=== PATIENT | male | born 1930 | race Caucasian/White ===

== ENCOUNTER 2017-07-22 08:33 | Inpatient (IN) | payer MEDICARE, OTHER ==
[~2017-07-22] VITALS: Ht 172.7 cm; Wt 84.7 kg
[2017-07-22] MEDS ORDERED: SODIUM CHLORIDE FLUSH 10ML SYR IVF ONE (09:30)
[2017-07-22] MEDS ORDERED: SODIUM CHLORIDE 0.9% 1,000ML IVBOLUS ONE (09:30)
[2017-07-22 09:32] LABS: HEMATOCRIT 45.3 % (39.2-51.8); HEMOGLOBIN 15.1 g/dL (13.7-18.0)
[2017-07-22 09:44] LABS: BLOOD UREA NITROGEN 27 mg/dL (7-18)
[2017-07-22 09:48] LABS: ASPARTATE AMINO TRANSFERASE 10 U/L (15-37)
[2017-07-22] MEDS ORDERED: ATROPINE SYRINGE 0.1 MG/ML, 10ML ONE (09:53)
[2017-07-22] MEDS ORDERED: LISI-167 PO (10:02)
[2017-07-22] MEDS ORDERED: ASPI-650 PO (10:02)
[2017-07-22] MEDS ORDERED: FENO54TA17 PO (10:02)
[2017-07-22] MEDS ORDERED: ATEN50TA41 PO (10:02)
[2017-07-22] MEDS ORDERED: OMEP40CA6 PO (10:02)
[2017-07-22] MEDS ORDERED: OMNIPAQUE 350 MG/ML, 100ML BOTTLE ONE (10:37)
[2017-07-22 10:46] LABS: IS PT STATUS REG ER OR PRE ER? YES
[2017-07-22] MEDS ORDERED: ONDANSETRON 2MG/ML, 2ML IVPush PRN (12:30)
[2017-07-22] MEDS ORDERED: SODIUM CHLORIDE 0.9% 1,000 ML IV SCH (12:30)
[2017-07-22] MEDS ORDERED: morphine SULFATE 10 MG/ML, 1ML IVPush PRN (12:30)
[2017-07-22] MEDS ORDERED: HEPARIN 5,000 UNITS/ML, 1ML SQ SCH (12:30)
[2017-07-22] MEDS ORDERED: ACETAMINOPHEN 325 MG TABLET PO PRN (12:30)
[2017-07-22 13:11] VITALS: BP 117/72
[2017-07-22] MEDS ORDERED: CINN500C2 PO (14:08)
[2017-07-22] MEDS ORDERED: SODIUM PHOSPHATE 20 MMOL in SODIUM CHLORIDE 0.9% 500 ML IV ONE (15:00)
[2017-07-22 16:49] LABS: IS PT STATUS REG ER OR PRE ER? NO
[2017-07-22 16:57] VITALS: BP 110/66
[2017-07-22 19:45] VITALS: BP 101/63
[2017-07-22 21:25] LABS: IS PT STATUS REG ER OR PRE ER? NO
[2017-07-23 01:50] VITALS: BP 122/77
[2017-07-23 05:21] LABS: HEMATOCRIT 38.4 % (39.2-51.8); HEMOGLOBIN 12.8 g/dL (13.7-18.0)
[2017-07-23 05:43] LABS: ASPARTATE AMINO TRANSFERASE 11 U/L (15-37); BLOOD UREA NITROGEN 29 mg/dL (7-18)
[2017-07-23 07:33] VITALS: BP 135/75
[2017-07-23] MEDS ORDERED: ASPIRIN 325 MG TABLET EC PO SCH (09:00)
[2017-07-23] MEDS ORDERED: FENOFIBRATE 54 MG TABLET PO SCH (09:00)
[2017-07-23] MEDS ORDERED: AMLO5TAB2 PO (09:32)
== END 2017-07-23 11:40 | disposition home or self-care (01) | DRG 308 ==
LOC: ED 11:01 → EDIP 11:44 → 5SO 13:08 → DCLOUNGE 07-23 11:24
PROVIDERS: ADMIT Family Medicine; ATTEND Family Medicine
DX: I49.5 Sick sinus syndrome (principal); N17.0 Acute kidney failure with tubular necrosis; J98.11 Atelectasis; E44.1 Mild protein-calorie malnutrition; E87.1 Hypo-osmolality and hyponatremia; K76.0 Fatty (change of) liver, not elsewhere classified; I48.2 Chronic atrial fibrillation; I48.91 Unspecified atrial fibrillation; I10 Essential (primary) hypertension; E78.5 Hyperlipidemia, unspecified; I25.10 Atherosclerotic heart disease of native coronary artery without angina pectoris; K21.9 Gastro-esophageal reflux disease without esophagitis; M54.5 Low back pain; Z66 Do not resuscitate; Z95.5 Presence of coronary angioplasty implant and graft; Z90.49 Acquired absence of other specified parts of digestive tract; Z68.28 Body mass index [BMI] 28.0-28.9, adult; Z85.51 Personal history of malignant neoplasm of bladder; Z82.49 Family history of ischemic heart disease and other diseases of the circulatory system; K80.20 Calculus of gallbladder without cholecystitis without obstruction; K76.89 Other specified diseases of liver; N28.1 Cyst of kidney, acquired
CPT/HCPCS: 36415; 71010; 74177; 80053; 80061; 81003; 83036; 83690; 83735; 83880; 84100; 84443; 84484; 85025; 93005; 93306; 96360; Q9967; J7030; J7040

== ENCOUNTER 2017-11-12 08:12 | Emergency (ER) | payer MEDICARE ==
[~2017-11-12] VITALS: Ht 175.3 cm; Wt 88.2 kg
[~2017-11-12 08:12] MED LIST: AMLO5TAB2 PO; ASPI-650 PO; ATEN50TA41 PO; CINN500C2 PO; FENO54TA17 PO; LISI-167 PO; OMEP40CA6 PO
[2017-11-12] MEDS ORDERED: RIVA1TAB PO (08:49)
[2017-11-12] MEDS ORDERED: SODIUM CHLORIDE FLUSH 10ML SYR IVF ONE (09:00)
[2017-11-12] MEDS ORDERED: DILTIAZEM 5 MG/ML, 5ML IV ONE (09:00)
[2017-11-12] MEDS ORDERED: DILTIAZEM 5 MG/ML, 5ML ONE (09:02)
[2017-11-12 09:24] LABS: HEMATOCRIT 49.5 % (39.2-51.8); HEMOGLOBIN 16.5 g/dL (13.7-18.0); WHITE BLOOD COUNT 12.1 x10^3/uL (3.4-10)
[2017-11-12 09:36] LABS: ASPARTATE AMINO TRANSFERASE 16 U/L (15-37); BLOOD UREA NITROGEN 22 mg/dL (7-18)
[2017-11-12 09:40] LABS: IS PT STATUS REG ER OR PRE ER? YES
[2017-11-12] MEDS ORDERED: METOPROLOL SUCCINATE 25 MG TAB.ER.24H PO ONE (11:30)
[2017-11-12 11:53] VITALS: BP 117/73
== END 2017-11-12 11:56 | disposition home or self-care (01) ==
LOC: ED 09:55
DX: I48.0 Paroxysmal atrial fibrillation (principal); K21.9 Gastro-esophageal reflux disease without esophagitis; I10 Essential (primary) hypertension; I25.10 Atherosclerotic heart disease of native coronary artery without angina pectoris
CPT/HCPCS: 36415; 71010; 80053; 84484; 85025; 85610; 85730; 93005; 96374